=== PATIENT | male | born 1970 | race Caucasian/White ===

== ENCOUNTER 2021-01-07 21:56 | Emergency (ER) | payer OTHER ==
[~2021-01-07] VITALS: Ht 172.7 cm; Wt 10.0 kg
[2021-01-07 22:10] VITALS: Ht 172.7 cm; Wt 10.0 kg
[2021-01-07 23:07] VITALS: BP 146/87
[2021-01-08] MEDS ORDERED: MUPIROCIN1 GM TOP (13:04)
== END 2021-01-07 23:09 | disposition home or self-care (01) ==
LOC: ED 21:56
DX: S51.012A Laceration without foreign body of left elbow, initial encounter (principal); X58.XXXA Exposure to other specified factors, initial encounter; Y93.89 Activity, other specified; Y92.89 Other specified places as the place of occurrence of the external cause; Y99.8 Other external cause status
CPT/HCPCS: 90715; J2001

== ENCOUNTER 2021-01-08 12:42 | Emergency (ER) | payer OTHER ==
[~2021-01-08] VITALS: Ht 175.3 cm; Wt 102.1 kg
[2021-01-08 12:51] VITALS: BP 156/92; Ht 175.3 cm; Wt 102.1 kg
[2021-01-08] MEDS ORDERED: MUPIROCIN1 GM TOP (13:04)
== END 2021-01-08 13:14 | disposition home or self-care (01) ==
LOC: ED 12:42
DX: S51.012D Laceration without foreign body of left elbow, subsequent encounter (principal); X58.XXXD Exposure to other specified factors, subsequent encounter